=== PATIENT | male | born 1980 | race Asian ===

== ENCOUNTER 2020-08-17 19:47 | Emergency (ER) | payer OTHER, SELFPAY ==
[~2020-08-17] VITALS: Ht 180.3 cm; Wt 106.6 kg
[2020-08-17 19:49] VITALS: BP 125/68; Ht 180.3 cm; Wt 106.6 kg
== END 2020-08-17 20:49 | disposition home or self-care (01) ==
LOC: ED 19:47
DX: U07.1 COVID-19 (principal)
CPT/HCPCS: U0003

== ENCOUNTER 2020-08-21 19:54 | Emergency (ER) | payer OTHER, SELFPAY ==
[~2020-08-21] VITALS: Ht 180.3 cm; Wt 106.6 kg
[2020-08-21 19:57] VITALS: Ht 180.3 cm; Wt 106.6 kg
[2020-08-21 21:17] VITALS: BP 124/72
== END 2020-08-21 21:17 | disposition home or self-care (01) ==
LOC: ED 19:54
DX: U07.1 COVID-19 (principal); E78.00 Pure hypercholesterolemia, unspecified

== ENCOUNTER 2020-08-23 16:54 | Inpatient (IN) | payer OTHER, SELFPAY ==
[~2020-08-23] VITALS: Ht 180.3 cm; Wt 103.1 kg
[2020-08-23 16:56] VITALS: Ht 180.3 cm; Wt 103.1 kg
[2020-08-23 18:54] LABS: BASOPHIL % 0.4 % (0.2-1.5); PLATELET COUNT 219 x10^3mcL (152-348); RED CELL DISTRIBUTION WIDTH 13.5 % (12.1-16.2)
[2020-08-23 19:33] LABS: CALCIUM 8.2 mg/dL (8.5-10.1); CARBON DIOXIDE 27.9 mmol/L (21-32); CHLORIDE SERUM 94 mmol/L (98-107); GFR1 > 60 mL/min; GLUCOSE SERUM 100 mg/dL (74-106); POTASSIUM SERUM 3.4 mmol/L (3.5-5.1); SODIUM SERUM 129 mmol/L (136-145)
[2020-08-23 19:38] LABS: ALKALINE PHOSPHATASE 51 U/L (46-116); ALT/SGPT 54 U/L (16-63); AST/SGOT 45 U/L (15-37); BILIRUBIN TOTAL 0.4 mg/dL (0.20-1.00); LACTIC DEHYDROGENASE (LDH) 390 U/L (100-190); TOTAL PROTEIN, SERUM 7.4 g/dL (6.4-8.2)
[2020-08-23 20:14] LABS: C REACTIVE PROTEIN 25.7 mg/dL (<=0.9)
[2020-08-24 01:46] LABS: CHOLESTEROL/HDL RATIO 3.2
[2020-08-24 09:08] LABS: BASOPHIL % 0.4 % (0.2-1.5); PLATELET COUNT 243 x10^3mcL (152-348); RED CELL DISTRIBUTION WIDTH 13.8 % (12.1-16.2)
[2020-08-24 09:56] LABS: CALCIUM 9.1 mg/dL (8.5-10.1); CARBON DIOXIDE 27.3 mmol/L (21-32); CHLORIDE SERUM 99 mmol/L (98-107); CREATININE SERUM 0.9 mg/dL (0.7-1.3); GFR1 > 60 mL/min; GLUCOSE SERUM 127 mg/dL (74-106); MAGNESIUM 2.5 mg/dL (1.8-2.4); PHOSPHOROUS 3.5 mg/dL (2.5-4.9); POTASSIUM SERUM 4.3 mmol/L (3.5-5.1); SODIUM SERUM 136 mmol/L (136-145)
[2020-08-24] MEDS ORDERED: TYLENOL325 M2 PO (14:51)
[2020-08-24] MEDS ORDERED: ZITHROMAX1 GM/Packe PO (14:51)
[2020-08-24 16:56] VITALS: BP 132/76
[2020-08-24 17:08] VITALS: BP 132/76
[2020-08-24 22:07] VITALS: BP 114/50
[2020-08-25 06:41] VITALS: BP 112/60
[2020-08-25 09:24] VITALS: BP 109/60
[2020-08-25 10:35] LABS: BASOPHIL % 0.2 % (0.2-1.5); PLATELET COUNT 314 x10^3mcL (152-348); RED CELL DISTRIBUTION WIDTH 13.9 % (12.1-16.2)
[2020-08-25 10:54] LABS: CALCIUM 8.8 mg/dL (8.5-10.1); CARBON DIOXIDE 29.2 mmol/L (21-32); CHLORIDE SERUM 97 mmol/L (98-107); CREATININE SERUM 0.9 mg/dL (0.7-1.3); GFR1 > 60 mL/min; GLUCOSE SERUM 126 mg/dL (74-106); POTASSIUM SERUM 3.8 mmol/L (3.5-5.1); SODIUM SERUM 134 mmol/L (136-145)
[2020-08-25 12:34] VITALS: BP 117/60
[2020-08-25 17:48] VITALS: BP 124/71
[2020-08-25 21:41] VITALS: BP 108/61
[2020-08-26 05:51] VITALS: BP 120/65
[2020-08-26 07:42] LABS: BASOPHIL % 0.1 % (0.2-1.5); PLATELET COUNT 349 x10^3mcL (152-348); RED CELL DISTRIBUTION WIDTH 13.9 % (12.1-16.2)
[2020-08-26 08:39] LABS: ALKALINE PHOSPHATASE 58 U/L (46-116); ALT/SGPT 90 U/L (16-63); AST/SGOT 40 U/L (15-37); BILIRUBIN DIRECT 0.07 mg/dL (0.0-0.2); BILIRUBIN TOTAL 0.3 mg/dL (0.20-1.00); CALCIUM 8.8 mg/dL (8.5-10.1); CARBON DIOXIDE 27.1 mmol/L (21-32); CHLORIDE SERUM 99 mmol/L (98-107); CREATININE SERUM 0.8 mg/dL (0.7-1.3); GFR1 > 60 mL/min; GLUCOSE SERUM 100 mg/dL (74-106); POTASSIUM SERUM 4.1 mmol/L (3.5-5.1); SODIUM SERUM 136 mmol/L (136-145); TOTAL PROTEIN, SERUM 7.4 g/dL (6.4-8.2)
[2020-08-26 08:42] LABS: ALBUMIN 2.4 g/dL (3.4-5.0)
[2020-08-26 09:12] VITALS: BP 109/68
[2020-08-26 12:42] VITALS: BP 123/67
[2020-08-26 17:01] VITALS: BP 116/59
[2020-08-26] MEDS ORDERED: VITC PO (20:23)
[2020-08-26] MEDS ORDERED: DECADRON6 MG PO (20:23)
[2020-08-26] MEDS ORDERED: XARELTO10 M1 PO (20:23)
[2020-08-26] MEDS ORDERED: ZINC SULFATE220 MG PO (20:23)
[2020-08-26] MEDS ORDERED: D-10001 TAB PO (20:23)
[2020-08-26] MEDS ORDERED: MUCINEX600 MG PO (20:25)
[2020-08-26 20:52] VITALS: BP 116/74
[2020-08-27 05:32] VITALS: BP 104/68
[2020-08-27 08:08] LABS: BASOPHIL % 0.1 % (0.2-1.5); RED CELL DISTRIBUTION WIDTH 13.7 % (12.1-16.2)
[2020-08-27 08:27] LABS: PLATELET COUNT 415 x10^3mcL (152-348)
[2020-08-27 08:43] VITALS: BP 119/71
[2020-08-27 08:50] LABS: CALCIUM 9.2 mg/dL (8.5-10.1); CARBON DIOXIDE 28.5 mmol/L (21-32); CHLORIDE SERUM 102 mmol/L (98-107); CREATININE SERUM 0.8 mg/dL (0.7-1.3); GFR1 > 60 mL/min; GLUCOSE SERUM 89 mg/dL (74-106); POTASSIUM SERUM 4.2 mmol/L (3.5-5.1); SODIUM SERUM 140 mmol/L (136-145)
[2020-08-27 11:53] VITALS: BP 104/61
[2020-08-27 13:16] VITALS: BP 104/61
[2020-08-27 14:09] LABS: ALBUMIN 2.6 g/dL (3.4-5.0); BILIRUBIN DIRECT 0.11 mg/dL (0.0-0.2); BILIRUBIN TOTAL 0.4 mg/dL (0.20-1.00); TOTAL PROTEIN, SERUM 7.4 g/dL (6.4-8.2)
[2020-08-27] MEDS ORDERED: VITAMIN C500 M6 PO (15:38)
[2020-08-27] MEDS ORDERED: MASON NATURAL1000 IU PO (15:38)
[2020-08-27] MEDS ORDERED: MUCINEX600 MG PO (15:38)
[2020-08-27] MEDS ORDERED: ELIQUIS5 MG PO (15:38)
[2020-08-27] MEDS ORDERED: MORGIDOX 1X100100 MG PO (15:38)
[2020-08-27] MEDS ORDERED: ZINC SULFATE220 M2 PO (15:38)
[2020-08-27] MEDS ORDERED: DECADRON6 MG PO (15:38)
[2020-08-27 16:22] VITALS: BP 108/66
== END 2020-08-27 21:31 | disposition home or self-care (01) | DRG 720 ==
LOC: ED 16:54 → DU 21:32
PROVIDERS: Student in an Organized Health Care Education/Training Program; ADMIT Internal Medicine; ATTEND Internal Medicine
PROC: XW033E5 Introduction of Remdesivir Anti-infective into Peripheral Vein, Percutaneous Approach, New Technology Group 5 (ICD-10-PCS; 2020-08-25)
PROC: XW13325 Transfusion of Convalescent Plasma (Nonautologous) into Peripheral Vein, Percutaneous Approach, New Technology Group 5 (ICD-10-PCS; principal; 2020-08-26)
DX: A41.9 Sepsis, unspecified organism (principal); U07.1 COVID-19; J96.01 Acute respiratory failure with hypoxia; E43 Unspecified severe protein-calorie malnutrition; E78.00 Pure hypercholesterolemia, unspecified; E78.5 Hyperlipidemia, unspecified; E87.1 Hypo-osmolality and hyponatremia; J12.89 Other viral pneumonia; E83.41 Hypermagnesemia; D47.3 Essential (hemorrhagic) thrombocythemia; D72.829 Elevated white blood cell count, unspecified; Z79.899 Other long term (current) drug therapy; Z79.891 Long term (current) use of opiate analgesic; Z79.01 Long term (current) use of anticoagulants
CPT/HCPCS: 36600; 83880; 85378; G0378; J1100; J1644; J3535; J7030; J7040; J8540; U0003